=== PATIENT | female | born 1990 | race Two or more races ===

== ENCOUNTER → 2023-05-04 | Outpatient (CLI) | payer OTHER ==
[2023-05-04 14:16] LABS: HEMATOCRIT 40.9 % (36.0-47.0); HEMOGLOBIN 13.9 g/dl (12.0-15.5); MEAN CORPUSCULAR HEMOGLOBIN 29.9 pg (27.0-33.0); PLATELET COUNT, AUTOMATED 230 10^3/uL (150-450); RED BLOOD COUNT 4.65 10^6/uL (4.00-5.40); WHITE BLOOD COUNT 9.7 10^3/uL (4.0-10.0)
[2023-05-04 15:07] LABS: HIV 1&2 SCREEN NEGATIVE (NEGATIVE)
[2023-05-04 15:16] LABS: HEPATITIS C VIRUS ABY INDEX 0.08 INDEX (<0.8)
[2023-05-04 15:39] LABS: CHLAMYDIA DNA AMPLIFICATION NEGATIVE (NEGATIVE); GC DNA AMPLIFICATION NEGATIVE (NEGATIVE)
== END ==
LOC: M PLALAB 10:51
PROVIDERS: ATTEND Advanced Practice Midwife
DX: Z34.92 Encounter for supervision of normal pregnancy, unspecified, second trimester (principal)
CPT/HCPCS: 36415; 76801; 85027; 86762; 86780; 86803; 86850; 86900; 86901; 87086; 87340; 87389; 87810; 87850; G0463

== ENCOUNTER → 2023-05-04 | Outpatient (CLI) | payer OTHER | LOC: M WHC 10:14 | PROVIDERS: ATTEND Advanced Practice Midwife | DX: Z53.9 Procedure and treatment not carried out, unspecified reason (principal) ==

== ENCOUNTER 2023-06-02 15:47 | Emergency (ER) | payer OTHER ==
[~2023-06-02] VITALS: Ht 152.4 cm; Wt 76.0 kg
[2023-06-02] MEDS ORDERED: ALBU6.7H6 INH (15:54)
[2023-06-02] MEDS ORDERED: ACET-910 PO (15:54)
[2023-06-02 17:27] VITALS: TEMP 98.6
[2023-06-02 17:33] VITALS: BP 115/70; O2SAT 99
== END 2023-06-02 17:34 | disposition home or self-care (01) ==
LOC: M ED 15:47
DX: O98.512 Other viral diseases complicating pregnancy, second trimester (principal); U07.1 COVID-19; Z3A.18 18 weeks gestation of pregnancy; Z20.89 Contact with and (suspected) exposure to other communicable diseases; O99.512 Diseases of the respiratory system complicating pregnancy, second trimester; Z88.5 Allergy status to narcotic agent

== ENCOUNTER → 2023-06-14 | Outpatient (CLI) | payer OTHER ==
[~2023-06-14] MED LIST: ACET-910 PO; ALBU6.7H6 INH
== END ==
LOC: M WHC 08:19
PROVIDERS: ATTEND Advanced Practice Midwife
DX: Z34.92 Encounter for supervision of normal pregnancy, unspecified, second trimester (principal); Z3A.20 20 weeks gestation of pregnancy

== ENCOUNTER → 2023-06-15 | Outpatient (REF) | payer OTHER | LOC: M PLALAB 10:15 | PROVIDERS: ATTEND Obstetrics & Gynecology | DX: R82.90 Unspecified abnormal findings in urine (principal) ==

== ENCOUNTER → 2023-08-10 | Outpatient (CLI) | payer OTHER ==
[2023-08-10 14:21] LABS: HEMATOCRIT 35.3 % (36.0-47.0); HEMOGLOBIN 11.8 g/dl (12.0-15.5); MEAN CORPUSCULAR HEMOGLOBIN 29.9 pg (27.0-33.0); MEAN CORPUSCULAR HGB CONC 33.4 g/dl (32.0-36.5); MEAN CORPUSCULAR VOLUME 89.4 fl (80.0-96.0); PLATELET COUNT, AUTOMATED 214 10^3/uL (150-450); RED BLOOD COUNT 3.95 10^6/uL (4.00-5.40); WHITE BLOOD COUNT 9.5 10^3/uL (4.0-10.0)
[2023-08-10 15:47] LABS: GC DNA AMPLIFICATION NEGATIVE (NEGATIVE)
== END ==
LOC: M PLALAB 08:56
PROVIDERS: ATTEND Specialist
DX: Z34.82 Encounter for supervision of other normal pregnancy, second trimester (principal)

== ENCOUNTER → 2023-08-10 | Outpatient (CLI) | payer OTHER | LOC: M PLALAB 08:54 | PROVIDERS: ATTEND Obstetrics & Gynecology | DX: O34.219 Maternal care for unspecified type scar from previous cesarean delivery (principal); Z53.9 Procedure and treatment not carried out, unspecified reason ==

== ENCOUNTER → 2023-10-01 | Outpatient (REF) | payer OTHER ==
[~2023-10-01] MED LIST changes: +PYRI25TA2 PO; +VENTAER INH
== END ==
LOC: M SFHCWAGY 14:55
PROVIDERS: ATTEND Obstetrics & Gynecology
DX: Z36.85 Encounter for antenatal screening for Streptococcus B (principal); Z3A.36 36 weeks gestation of pregnancy

== ENCOUNTER 2023-10-24 14:18 | Outpatient (CLI) | payer OTHER ==
[~2023-10-24] VITALS: Ht 152.4 cm; Wt 83.8 kg
[2023-10-24] MEDS ORDERED: ACET-897 PO (14:40)
[2023-10-24] MEDS ORDERED: TUMS500C PO (14:40)
[2023-10-24] MEDS ORDERED: PRENTAB9 PO (14:40)
[2023-10-24 14:42] VITALS: BP 114/68; O2SAT 97
[2023-10-24] MEDS ORDERED: HOME MED LIST COMPLETE! XX SCH (14:45)
== END 2023-10-24 15:16 | disposition home or self-care (01) ==
LOC: M LDO 14:18
PROVIDERS: ATTEND Obstetrics & Gynecology
DX: O36.8130 Decreased fetal movements, third trimester, not applicable or unspecified (principal); O34.219 Maternal care for unspecified type scar from previous cesarean delivery; Z3A.39 39 weeks gestation of pregnancy
CPT/HCPCS: 59025; 76815; G0463

== ENCOUNTER 2023-10-27 05:34 | Inpatient (IN) | payer OTHER ==
[~2023-10-27] VITALS: Ht 152.4 cm; Wt 83.0 kg
[2023-10-27] VITALS (8 sets, daily range): BP systolic 94–119; BP diastolic 52–79; O2SAT 96–99
[~2023-10-27 05:34] MED LIST changes: +ACET-897 PO; +PRENTAB9 PO; +TUMS500C PO
[2023-10-27] MEDS: LR 1,000 ML IV ONE ×2 (05:50→16:10)
[2023-10-27] MEDS: LR 1,000 ML IV SCH ×2 (06:00→09:05)
[2023-10-27] MEDS: LACTATED RINGER'S 1000 ML IV STA (06:38)
[2023-10-27] MEDS ORDERED: HOME MED LIST COMPLETE! XX SCH (06:50)
[2023-10-27 06:56] LABS: HEMATOCRIT 37.8 % (36.0-47.0); HEMOGLOBIN 12.7 g/dl (12.0-15.5); MEAN CORPUSCULAR HEMOGLOBIN 28.6 pg (27.0-33.0); MEAN CORPUSCULAR HGB CONC 33.6 g/dl (32.0-36.5); MEAN CORPUSCULAR VOLUME 85.1 fl (80.0-96.0); PLATELET COUNT, AUTOMATED 186 10^3/uL (150-450); RED BLOOD COUNT 4.44 10^6/uL (4.00-5.40); WHITE BLOOD COUNT 8.9 10^3/uL (4.0-10.0)
[2023-10-27] MEDS: ceFAZolin SOD 2 GM in IV 1 EA IV ONE (07:00)
[2023-10-27] MEDS: BICITRA 30ML SOLN UDC PO ONE (07:35)
[2023-10-27] MEDS ORDERED: OXYTOCIN INJ 10UNITS/ML 1ML VIAL As Ordered ONE (08:18)
[2023-10-27] MEDS ORDERED: fentaNYL 100 MCG/2 ML INJECTION As Ordered ONE (08:18)
[2023-10-27] MEDS ORDERED: ONDANSETRON 4MG 2ML VIAL As Ordered ONE (08:18)
[2023-10-27] MEDS ORDERED: MORPHINE PRES-FREE INJ 10 MG/10 ML VIAL As Ordered ONE (08:18)
[2023-10-27] MEDS ORDERED: ePHEDrine SULFATE 25 MG/5 ML(5MG/ML) SYRINGE As Ordered ONE (08:18)
[2023-10-27] MEDS ORDERED: PHENYLephrine 500MCG 5ML (100MCG/ML) SYRINGE As Ordered ONE (08:18)
[2023-10-27] MEDS ORDERED: KETOROLAC 60MG 2ML VIAL As Ordered ONE (08:44)
[2023-10-27] MEDS: FERROUS SULFATE 325MG TAB PO SCH (09:00)
[2023-10-27] MEDS: DOCUSATE SODIUM 100MG CAPSULE PO SCH (09:00)
[2023-10-27] MEDS: PRENATAL VITAMINS CHEWABLE TABLET PO SCH (09:00)
[2023-10-27] MEDS ORDERED: METHYLERGONOVINE MALEATE 0.2MG/ML 1ML VIAL IM PRN (09:05)
[2023-10-27] MEDS ORDERED: RHO(D) IMMUNE GLOBULIN/MALTOSE 500MCG(2500IU)/2.2ML VIAL (WINRHO) IM SCH (09:05)
[2023-10-27] MEDS ORDERED: ONDANSETRON 4MG 2ML VIAL IV PRN ×2 (09:05→09:10)
[2023-10-27] MEDS ORDERED: PERCOCET 5MG/325MG TAB PO PRN (09:05)
[2023-10-27] MEDS ORDERED: MOM 30ML SUSPENSION UDC PO PRN (09:05)
[2023-10-27] MEDS ORDERED: fentaNYL 100 MCG/2 ML INJECTION IV PRN (09:10)
[2023-10-27] MEDS ORDERED: diphenhydrAMINE 50MG/ML VIAL IV PRN (09:10)
[2023-10-27] MEDS ORDERED: NALOXONE INJ 0.4MG/1ML VIAL IV PRN ×2 (09:10)
[2023-10-27] MEDS: SLF 3 ML SYR IV SCH (09:10)
[2023-10-27] MEDS ORDERED: **NOTE PATIENT COMMENT** MISC XX SCH (09:10)
[2023-10-27] MEDS ORDERED: METOCLOPRAMIDE INJ 10MG/2ML VIAL IV PRN (09:10)
[2023-10-27] MEDS ORDERED: MEPERIDINE 25 MG/ML 1ML VIAL IV PRN (09:10)
[2023-10-27] MEDS ORDERED: OXYTOCIN 30UNITS IN 0.9% NaCl 500ML IV BAG As Ordered ONE (09:21)
[2023-10-27] MEDS ORDERED: COLA100C5 PO (09:23)
[2023-10-27] MEDS ORDERED: IBUP80TA PO (09:23)
[2023-10-27] MEDS: OXYTOCIN DRIP 30 UNITS in IV 1 EA IV SCH (09:30)
[2023-10-27] MEDS: KETOROLAC 30 MG/ML 1ML VIAL IV SCH (15:56)
[2023-10-27] MEDS: LACTATED RINGER'S 1000 ML IV ONE (20:38)
[2023-10-28] VITALS (7 sets, daily range): BP systolic 101–120; BP diastolic 54–69; TEMP 97.8; O2SAT 97–100
[2023-10-28 06:15] LABS: MEAN CORPUSCULAR HEMOGLOBIN 28.6 pg (27.0-33.0); MEAN CORPUSCULAR HGB CONC 32.8 g/dl (32.0-36.5); MEAN CORPUSCULAR VOLUME 87.1 fl (80.0-96.0); PLATELET COUNT, AUTOMATED 145 10^3/uL (150-450); RED BLOOD COUNT 2.87 10^6/uL (4.00-5.40); WHITE BLOOD COUNT 8.7 10^3/uL (4.0-10.0)
[2023-10-28 06:16] LABS: HEMOGLOBIN 8.2 g/dl (12.0-15.5)
[2023-10-28] MEDS: SIMETHICONE 80MG CHEW TAB PO PRN (08:20)
[2023-10-28] MEDS: IBUPROFEN 800 MG TAB PO SCH (11:36)
[2023-10-28] MEDS: CALCIUM CARBONATE 500 MG CHEW U/D PO PRN (15:16)
[2023-10-28] MEDS: PERCOCET 5MG/325MG TAB PO PRN (17:56)
[2023-10-29 02:00] VITALS: BP 110/62; O2SAT 99
[2023-10-29 06:00] VITALS: BP 109/65; O2SAT 99
[2023-10-29] MEDS: MEASLES,MUMPS,RUBELLA VACCINE INJ (MMR-II) SC.IMMUN ONE (07:15)
[2023-10-29 10:00] VITALS: BP 116/64; O2SAT 99
== END 2023-10-29 12:15 | disposition home or self-care (01) | DRG 773 ==
LOC: M LDI 05:34 → M OBS 10:20
PROVIDERS: ADMIT Obstetrics & Gynecology; ATTEND Obstetrics & Gynecology
PROC: 10D00Z1 Extraction of Products of Conception, Low, Open Approach (ICD-10-PCS; principal; 2023-10-27 07:30)
DX: O34.211 Maternal care for low transverse scar from previous cesarean delivery (principal); Z3A.39 39 weeks gestation of pregnancy; Z37.0 Single live birth